=== PATIENT | female | born 1990 | race Caucasian/White ===

== ENCOUNTER 2017-03-20 19:32 | Emergency (ER) | payer BC ==
[~2017-03-20 19:32] MED LIST: CYCLOBENZAPRINE5 M1 PO; MAGIC MOUTH WASH; NAPROSYN500 M1 PO; NO MEDS; NORCO 5-325 TA1 EACH PO; ORTHO TRI-CYCL1 EACH PO; PRILOSEC40 M1 PO; ULTRAM50 M1 PO; ZOLOFT50 M1 PO; [UNRECOGNIZED DRUG - OTHER]
[2017-03-20] MEDS ORDERED: PRILOSEC OTC20 M1 PO (20:55)
[2017-03-20] MEDS ORDERED: ZYRTEC10 M7 PO (20:55)
[2017-03-20] MEDS ORDERED: BENADRYL25 M3 PO (20:56)
[2017-03-20 21:24] LABS: URINE BILIRUBIN NEGATIVE (NEG); URINE BLOOD MODERATE (NEG); URINE GLUCOSE (UA) NEGATIVE (NEG); URINE KETONE NEGATIVE (NEG); URINE LEUKOCYTE ESTERASE NEGATIVE (NEG); URINE NITRITE NEGATIVE (NEG); URINE PROTEIN NEGATIVE (NEG)
[2017-03-20 21:27] LABS: URINE APPEARANCE HAZY; URINE COLOR YELLOW
[2017-03-20 21:36] LABS: URINE AMORPHOUS 1+; URINE RBC 0 /[HPF] (0-5); URINE WBC 0 /[HPF] (0-5)
[2017-03-20 21:58] LABS: BASO % 0.1 % (0-2); EOS % 0.4 % (0-7); HCT-HEMATOCRIT 35.2 % (34.0-49.0); HGB-HEMOGLOBIN 12.1 gm/dl (12.0-15.5); IMMATURE GRANULOCYTES ABSOLUTE 0.03 tho/cmm (0-0.03); IMMATURE GRANULOCYTES PERCENT 0.3 % (0-0.3); LYMPH % 14.2 % (20-45); LYMPH ABSOLUTE COUNT 1.3 tho/cmm (0.8-4.5); MCH (MEAN CORPUSCULAR HGB) 26.6 pg (28.0-32.0); MCHC MEAN CORPUSCULAR HGB CONC 34.4 % (32.0-36.0); MCV (MEAN CELL VOLUME) 77.4 fl (82.0-96.0); MEAN PLATELET VOLUME 9.7 cmc (9.4-12.4); MONO % 5.2 % (0-12); MONOCYTE ABSOLUTE COUNT 0.5 tho/cmm (0.0-1.2); NEUTROPHIL ABSOLUTE COUNT 7.3 tho/cmm (1.6-8.0); NEUTROPHIL-AUTOMATED 7.3 tho/cmm (1.6-8.0); NEUTROPHILS % 79.8 % (40-80); PLATELET COUNT 260 tho/cmm (150-450); RED BLOOD COUNT 4.55 mil/cmm (4.00-5.20); WHITE BLOOD COUNT 9.2 tho/cmm (4.0-10.0)
[2017-03-20 22:27] LABS: ALB/GLOB RATIO 1.2 (0.8-2.0); ALKALINE PHOSPHATASE 94 U/L (33-138); ALT/SGPT 149 U/L (12-78); ANION GAP 13 mmol/L (0-20); AST/SGOT 243 U/L (10-40); BILIRUBIN,TOTAL 1.1 mg/dl (0-1.5); BLOOD UREA NITROGEN 12 mg/dl (6-24); CALCIUM 8.8 mg/dl (8.5-10.5); CARBON DIOXIDE-VENOUS 25 mmol/L (22-32); CHLORIDE 108 mmol/l (96-110); CREATININE 0.67 mg/dl (0.50-1.10); GLUCOSE 108 mg/dL (70-110); LIPASE 144 U/L (73-393); POTASSIUM 3.9 mmol/L (3.7-5.1); SODIUM 142 mmol/L (135-145); eGFR VALUE FOR BLACK >90 mL/Min
[2017-03-21] MEDS ORDERED: NORCO 5/3251 TAB PO (00:42)
[2017-03-21] MEDS ORDERED: ZOFRAN4 M2 PO (00:42)
== END 2017-03-21 00:50 ==
LOC: EDMED 19:32
PROVIDERS: Emergency Medicine
DX: K80.70 Calculus of gallbladder and bile duct without cholecystitis without obstruction (principal); R74.0 Nonspecific elevation of levels of transaminase and lactic acid dehydrogenase [LDH]; R16.1 Splenomegaly, not elsewhere classified; K21.9 Gastro-esophageal reflux disease without esophagitis; Z88.8 Allergy status to other drugs, medicaments and biological substances
CPT/HCPCS: J2270; J2405; J7030